=== PATIENT | female | born 1985 | race Hispanic/Latino ===

== ENCOUNTER 2017-07-12 04:39 | Emergency (ER) | payer BC ==
[2017-07-12 04:54] VITALS: PULSE 83; RESP 18; TEMP 98.9; O2SAT 98
--- NOTE | 2017-07-12 06:05 | ED PDOC ---
HPI: Hypertension/Hypotension Time Seen by Provider: 07/12/17 05:03 Chief Complaint (Nursing): High Blood Pressure Chief Complaint (Provider): Hypertension History Per: Patient History/Exam Limitations: no limitations Onset/Duration Of Symptoms: Days (x1) Current Symptoms Are (Timing): Still Present Associated Symptoms: Chest Pain. denies: Blurred Vision, Headache Quality Of Symptoms: Rapid Heart Rate Additional Complaint(s): 32 year old female presents to ED with complaints of high blood pressure x1 day and has a past medical history of chronic back pain. Patient states she noticed her elevated blood pressure after checking it on her home device. (+) palpitations, chest pain, and anxiety. (-) headache, nausea, vomiting, or visual changes. Patient attributes symptoms to her father's , which occurred 24 horus ago. Patient felt the need for evaluation as she was concerned about sleeping with elevated blood pressure. Denies any family history of HTN. PCP: Non [facility] Past Medical History Reviewed: Historical Data, Nursing Documentation, Vital Signs Vital Signs: Last Vital Signs Temp 98.9 F 07/12/17 04:50 Pulse 83 07/12/17 04:50 Resp 18 07/12/17 04:50 BP 158/105 H 07/12/17 04:50 Pulse Ox 98 07/12/17 04:50 - Medical History PMH: Chronic Pain (chronic back pain) - Surgical History Surgical History: No Surg Hx - Family History Family History: States: No Known Family Hx Denies: Hypertension - Social History Current smoker - smoking cessation education provided: No Ex-Smoker (has not smoked in the last 12 months): No Alcohol: None Drugs: Denies - Allergies Allergies/Adverse Reactions: Allergies Allergy/AdvReac Type Severity Reaction Status Date / Time cephalexin [From Keflex] Allergy PAIN Verified 07/12/17 04:50 Review of Systems ROS Statement: Except As Marked, All Systems Reviewed And Found Negative Constitutional: Positive for: Other ((+) high blood pressure) Eyes: Negative for: Vision Change Cardiovascular: Positive for: Chest Pain, Palpitations Gastrointestinal: Negative for: Nausea, Vomiting Neurological: Negative for: Headache Psych: Positive for: Anxiety Physical Exam - Reviewed Nursing Documentation Reviewed: Yes Vital Signs Reviewed: Yes - Physical Exam Appears: Positive for: Non-toxic, No Acute Distress Head Exam: Positive for: ATRAUMATIC, NORMAL INSPECTION, NORMOCEPHALIC Skin: Positive for: Normal Color, Warm, Dry Eye Exam: Positive for: EOMI, Normal appearance, PERRL ENT: Positive for: Normal ENT Inspection Neck: Positive for: Normal, Painless ROM, Supple Cardiovascular/Chest: Positive for: Regular Rate, Rhythm Respiratory: Positive for: Normal Breath Sounds. Negative for: Respiratory Distress Gastrointestinal/Abdominal: Positive for: Normal Exam, Soft. Negative for: Tenderness Back: Positive for: Normal Inspection Extremity: Positive for: Normal ROM. Negative for: Deformity Neurologic/Psych: Positive for: Alert, Oriented. Negative for: Motor/Sensory Deficits - Laboratory Results Result Diagrams: 07/12/17 05:41 07/12/17 05:41 - ECG O2 Sat by Pulse Oximetry: 98 (RA) Pulse Ox Interpretation: Normal Medical Decision Making Medical Decision Makin Initial impression: palpitations, anxiety, and elevated blood pressure in setting of bereavement Initial plan: * EKG * Labs * UDrug screen * UPreg [id number] Labs reviewed: no clinically significant abnormalities. Patient will follow up with the clinic. Patient is stable for discharge home. Scribe Attestation: Documented by Naila Hammond acting as a scribe for Kishore Rollins MD. Scribe Attestation: All medical record entries made by the Scribe were at my direction and personally dictated by me. I have reviewed the chart and agree that the record accurately reflects my personal performance of the history, physical exam, medical decision making, and the department course for this patient. I have also personally directed, reviewed, and agree with the discharge instructions and disposition. Disposition - Clinical Impression Clinical Impression: Bereavement - Disposition Referrals: [facility] [Outside] Disposition: Routine/Home Disposition Time: 06:35 Condition: STABLE Instructions: Grief and Loss (ED) Forms: [employer] (Greek)
[2017-07-12 06:07] LABS: BASO % 0.3 % (0.0-2.0); EOS # 0.1 K/uL (0.0-0.7); EOS % 1.3 % (0.0-4.0); HEMATOCRIT 33.4 % (34.0-47.0); LYMPH # 2.3 K/uL (1.0-4.3); LYMPH % 29.4 % (20.0-40.0); MEAN CELL VOLUME 82.9 fl (81.0-99.0); MEAN CORPUSCULAR HEMOGLOBIN 26.7 pg (27.0-31.0); MEAN CORPUSCULAR HGB CONC 32.2 g/dL (33.0-37.0); MEAN PLATELET VOLUME 7.7 fl (7.2-11.7); MONO # 0.5 K/uL (0.0-0.8); MONO % 6.9 % (0.0-10.0); NEUT # 4.8 K/uL (1.8-7.0); NEUT % 62.1 % (50.0-75.0); RED CELL DISTRIBUTION WIDTH 16.2 % (11.5-14.5); WHITE BLOOD COUNT 7.7 K/uL (4.8-10.8)
[2017-07-12 06:30] LABS: BLOOD UREA NITROGEN 11 mg/dl (7-17); CALCIUM 8.7 mg/dL (8.4-10.2); CARBON DIOXIDE 22 mmol/L (22-30); CHLORIDE 108 mmol/L (98-107); GFR AFRICAN-AMERICAN > 60; GLUCOSE,RANDOM 97 mg/dL (65-105); SODIUM 140 mmol/l (132-148)
[2017-07-12 06:44] VITALS: BP 144/99
--- NOTE | 2017-07-12 12:17 | CARD ---
APPROVED REPORT EKG Measurement Heart [id number] <Conclusion> Normal sinus rhythm Normal ECG
== END 2017-07-12 06:43 | disposition home or self-care (01) ==
LOC: H.ER 04:39
DX: Z63.4 Disappearance and death of family member (principal); F41.9 Anxiety disorder, unspecified; G89.29 Other chronic pain; I10 Essential (primary) hypertension
CPT/HCPCS: 80048; 81025; 85025; 93005; 99284; G0480